=== PATIENT | male | born 1965 | race Two or more races ===

== ENCOUNTER → 2024-08-06 | Outpatient (CLI) | payer MEDICAID, SELFPAY ==
--- NOTE | 2024-08-06 13:30 | ECHO_ITS ---
Transthoracic Echo Report Ht (in): 70 Wt (lb): 210 Exam Location: Echo Lab Status: Preadmit Clinical Education Manager: ZINA Evans^^^^ Indications: Procedure Performed: BP: 128 / 78 HR: 59 Technical Quality: Fair MEASUREMENTS (Male / Female) Normal Values 2D ECHO LV Diastolic Diameter PLAX 4.5 cm 4.2 - 5.9 / 3.9 - 5.3 cm LV Systolic Diameter PLAX 3.0 cm IVS Diastolic Thickness 1.2 cm 0.6 - 1.0 / 0.6 - 0.9 cm LVPW Diastolic Thickness 0.9 cm 0.6 - 1.0 / 0.6 - 0.9 cm LV Relative Wall Thickness 0.5 LVOT Diameter 1.7 cm Aortic Root Diameter 3.7 cm LV Ejection Fraction MOD BP 67.0 % >= 55 % LV Cardiac Index MOD BP 2216.6 cm?/min?m? LV Ejection Fraction MOD 4C 67.0 % LV Cardiac Index MOD 4C 2378.0 cm?/min?m? LV Ejection Fraction 4C AL 70.0 % LV Cardiac Index 4C AL 2594.6 cm?/min?m? LV Ejection Fraction MOD 2C 68.9 % LV Cardiac Index MOD 2C 1982.6 cm?/min?m? LV Ejection Fraction 2C AL 71.6 % LV Cardiac Index 2C AL 2087.6 cm?/min?m? LA Volume Index 28.1 cm?/m? 16 - 28 cm?/m? Ascending Aorta Diameter 3.7 cm DOPPLER AV Peak Velocity 221.5 cm/s AV Peak Gradient 19.6 mmHg AV Mean Gradient 12.0 mmHg AV Velocity Time Integral 56.8 cm AI Peak Velocity 234.0 cm/s AI Peak Gradient 21.9 mmHg AI Pressure Half Time 1064.5 ms LVOT Peak Velocity 120.0 cm/s LVOT Peak Gradient 5.8 mmHg LVOT Velocity Time Integral 28.5 cm LVOT Cardiac Index 1740.2 cm?/min?m? AV Area Cont Eq vti 1.1 cm? AV Area Cont Eq pk 1.2 cm? MV Area PHT 3.0 cm? Mitral E Point Velocity 50.1 cm/s Mitral A Point Velocity 73.5 cm/s Mitral E to A Ratio 0.7 LV E' Lateral Velocity 9.1 cm/s Mitral E to LV E' Lateral Ratio 5.5 LV E' Septal Velocity 7.3 cm/s Mitral E to LV E' Septal Ratio 6.8 TR Peak Velocity 202.0 cm/s TR Peak Gradient 16.3 mmHg PV Peak Velocity 117.0 cm/s PV Peak Gradient 5.5 mmHg FINDINGS Left Ventricle Normal left ventricular size, wall thickness, systolic function with no obvious regional wall motion abnormalities. There is grade I diastolic dysfunction of the left ventricle (impaired relaxation pattern). The left ventricular ejection fraction is normal, estimated at 60-65%. Right Ventricle The right ventricle is normal in size and systolic function. The estimated right ventricular systolic pressure, 18 mmHg. Left Atrium The left atrium is normal by two-dimensional, color flow and Doppler imaging with no structural abnormalities, no thrombus formation present. Right Atrium The right atrium is normal by two-dimensional imaging, color flow and Doppler imaging with no structural abnormalities, no thrombus formation present. Atrial Septum The interatrial septum appears normal with no evidence of a shunt. Aorta The aorta is normal by two-dimensional, color flow and Doppler interrogation. Mitral Valve Mild mitral annular calcification. Trace to mild mitral regurgitation. Aortic Valve Mild aortic valve stenosis, mean gradient 12 mmHg, TIM 1.1 cm?. Mild aortic valve regurgitation. Tricuspid Valve There is mild tricuspid valve regurgitation. Pulmonic Valve Trivial pulmonic valve regurgitation. Vessels The pulmonary artery appears normal. The inferior vena cava pulmonary and hepatic veins appear normal. Pericardium The pericardium is normal by two-dimensional imaging. There is no significant pericardial effusion. CONCLUSIONS Indication: Chest pain Normal RV size and function with an estimated EF of 60 to 65%. Normal diastolic function Normal RV size and function with an estimated RVSP of 30 mmHg. Mild aortic valve stenosis with a V-max of 2.5 m/s and a mean PG of 40 mmHg. Valve area is 1.2 cm? Mild to trace AI. Mild MAC with mild MR. Mild TR Diego Stewartumanjessica (Electronically Signed) Final Date: 07 August 2024 14:06
== END | disposition home or self-care (01) ==
PROVIDERS: Referring Provider Family Medicine; Visit Provider Family Medicine
DX: I08.3 Combined rheumatic disorders of mitral, aortic and tricuspid valves (principal)
CPT/HCPCS: 93306